=== PATIENT | female | born 1955 | race African-American/Black ===

== ENCOUNTER 2016-05-26 20:51 | Emergency (ER) | payer BC ==
[~2016-05-26 20:51] MED LIST: EPINEPHRINE 1 MG/10 ML DISP.SYRIN. ONE
--- NOTE | 2016-05-26 22:44 | PHYS DOC ---
Past Medical History Past Medical History: Diabetes-Type II, Hypertension Past Surgical History: No Surgical History Alcohol Use: None Drug Use: None Adult General Chief Complaint Chief Complaint: CPR/FULL ARREST HPI HPI 60-year-old female presenting to the emergency department today in cardiac arrest. She presents today by EMS undergoing chest compressions. EMS reports the patient was witnessed down. Approximately 10 minutes of downtime without CPR. CPR was initiated by EMS. Left tibial interosseous device placed. LMA was placed. They reports giving 1 dose of epinephrine. CPR has been in progress for approximately 15 minutes upon arrival. No further history is available this time. Onset today. Location cardiopulmonary. Duration constant. No alleviating factors present. Nonradiating. Review of systems, past medical history, surgical history, allergy list, social history, and family history was unable to be obtained because the patient currently is undergoing CPR and is unable to speak. Review of Systems Review of Systems SEE ABOVE. Physical Exam Physical Exam Constitutional: The patient is currently undergoing CPR HEENT. Pupils are equal, approximately 3 mm and sluggish. Eyes: Pupils are sluggish conjunctiva normal. Neck. No crepitus to palpation. Cardiovascular. No pulse present in the absence of chest compressions Pulmonary: Patient has bilateral breath sounds. No wheezing present. Abdomen soft distended nontender. Skin: Cool and dry to touch. No rash present. Back: No evidence of traumatic injury. Extremities: Nontender with normal range of motion. No edema. Neurologic: The patient is unresponsive. Does not respond to painful stimuli. Does not open eyes to painful stimuli. Does not make verbal sounds. Psychologic: Does not make eye contact. EKG EKG [] Radiology/Procedures Radiology/Procedures [] Course & Med Decision Making Course & Med Decision Making Pertinent Labs and Imaging studies reviewed. (See chart for details) [] 60-year-old female presenting to the emergency department undergoing chest compressions. EMS reports that the patient initially was in an agonal PEA arrest which degraded into asystole in route. CPR about had been present for about 15min pull out operator. Upon arrival to the emergency department chest compressions were initiated. Epinephrine given per ACLS protocol. See nursing documentation for code details. LMA was used. During CPR, the LMA seemed to not be in place and was not ventilating the patient appropriately. LMA was pulled out. Bag-valve -mask initiated. End-tidal CO2 was used during the code. Unfortunately we are unable to obtain ROSC. The patient was then called time of at 2102 approximately 40 minute from down time with poor prognostic indications such as 10 min without cpr initially and PEA/asystolic rhythm. Dragon Disclaimer Dragon Disclaimer This electronic medical record was generated, in whole or in part, using a voice recognition dictation system. Departure Departure Impression: Primary Impression: Cardiac arrest Additional Impression: Disposition: 09 ADMITTED INPATIENT Condition: Referrals: KAREN KC MD (PCP) Problem Qualifiers TARUN GUTIERRES MD May 26, 2016 22:44
[2016-05-27] MEDS ORDERED: EPINEPHRINE 1 MG/10 ML DISP.SYRIN. IV ONE ×4 (06:30)
== END 2016-05-27 02:17 | disposition expired ==
LOC: ER 20:51
DX: I46.9 Cardiac arrest, cause unspecified (principal); E11.9 Type 2 diabetes mellitus without complications; I10 Essential (primary) hypertension
CPT/HCPCS: 92950; 99285; J0171